=== PATIENT | male | born 1965 | race Caucasian/White ===

== ENCOUNTER 2017-03-15 06:54 | Inpatient (IN) | payer OTHER ==
--- NOTE | ~2017-03-15 | CN ---
Consultation Report [facility] [address] [place]. [address] NAME: MENDEZ COLLAZO JR : 63 STATUS : ADM Katie PAT#: [id number] AGE: 51 ADM/REG DATE : 03/15/17 MR#: [id number] REPORT SERV DATE: 03/16/17 DICTATED BY: HERNESTO VERA DATE: 03/16/17 REPORT STATUS : Draft TRANSCRIBED BY: MODAdrienne DATE: 03/16/17 INFECTIOUS DISEASE CONSULTATION DATE OF CONSULTATION: REASON FOR CONSULTATION: Right index finger infection in a patient with multiple antibiotic allergies. HISTORY OF PRESENT ILLNESS: A 51-year-old white male with diabetes, "Pxrslqm-Wassh-Piizt disease involving both hands and feet was admitted yesterday for right index finger infection. About two weeks ago, his right 2nd and 3rd fingernails broke when he lifted a box. He has some muscle atrophy and finger deformities perhaps due to his disease. His nails started growing back, but then over this last weekend, he developed swelling at the tip of the right index finger that progressed to the rest of the finger and also had some erythema. He had some low-grade fever 99.9 and then 101 in the emergency room, some nausea. When he noticed this swelling and redness had progressed up the hand towards the forearm, he came to the hospital. To me he reported no trauma to the tip of the finger or the pulp. He has a dog, but it did not bite or scratch him. Dr. Garcia saw him and took him to the operating room. He found pus and necrotic tissue when he opened the index finger pulp, it extended to the distal phalanx bone and part of that was resected. He also did incisions over the flexor tendon sheath in the deep thenar space with debridement. He thought it was "early infection" in the deep thenar space. However, the cultures are labeled as index finger and bone, and they are both growing some gram-positive cocci. The index finger specimen, which is presume is from the finger pulp has rare gram-positive cocci on the Gram stain. He was given vancomycin, which he tolerated overnight, but this morning he had itching and "some welts" that he noticed over the right arm and one on the pubic area. The vancomycin was stopped. He has not had any shortness of breath. He does have occasional boils with some nausea, no vomiting. His urine flow is somehow slow, which he blames on anesthesia. PAST MEDICAL HISTORY: As I mentioned above, plus hypertension, hyperlipidemia, reflux. PAST SURGICAL HISTORY: He had multiple surgeries before. In 2012, he had right 2nd toe amputation. In 2015, he had a right 5th metatarsal amputation for an MSSA infection. In 2014, he had a left index finger felon with MSSA requiring debridement. In 2013, he had a right hand cellulitis. ALLERGIES: HE STATES A CHILD, PENICILLIN CAUSED A RASH AND SHORTNESS OF BREATH. ANCEF CAUSED SEVERE ITCHING, ALTHOUGH I NOTICED HE RECEIVED A DOSE IN 10/2016. VANCOMYCIN TODAY CAUSED ITCHING AND MAYBE EARLY RASH. Consultation Report [address] [place]. [address] NAME: MENDEZ COLLAZO JR : 63 STATUS : ADM Katie PAT#: [id number] AGE: 51 ADM/REG DATE : 03/15/17 MR#: [id number] REPORT SERV DATE: 03/16/17 DICTATED BY: HERNESTO VERA DATE: 03/16/17 REPORT STATUS : Draft TRANSCRIBED BY: GUILLERMO DATE: 03/16/17 FAMILY HISTORY: Diabetes. SOCIAL HISTORY: He is disabled, . He has a pet dog. Does not smoke. MEDICATIONS ON ADMISSION: Amlodipine, Nexium, [place] as needed, metformin, omega-3 fatty acids, simvastatin, valsartan. PHYSICAL EXAMINATION: GENERAL: On exam, he is alert, awake, not in distress. HEENT: No oral thrush. Sclerae are white. EXTREMITIES: Hands as I mentioned, right hand now is wrapped. Left hand, there is some frailty to the thumbnail. The other ones look okay, just short. He has bilateral feet deformities what will be described as Charcot foot. He has some edema. LUNGS: Clear to auscultation. No wheezes, rhonchi, or rales. HEART: Regular rhythm. ABDOMEN: Soft. Positive bowel sounds. BUTTOCKS: With old scars from previous acne lesions. SKIN: With left upper inner arm raised red area, and the rest of the arm with a few pink raised areas. LAB WORK: On admission, sodium 132, potassium 3.3, lactic acid 0.7, creatinine 0.8. WBC 7, hemoglobin 13. ASSESSMENT AND PLAN: 1. Right index finger pulp abscess and osteomyelitis of the distal phalanx. Possible flexor tenosynovitis and thenar space infection, had surgical debridement yesterday. Cultures are growing gram-positive cocci to be further identified. 2. Diabetes. 3. Reported Waptgqg-Fmhns-Lzsuc disease. 4. History of left hand and right foot methicillin-susceptible Staphylococcus aureus infections. 5. Reported allergies as I mentioned. I will stop the vancomycin and start linezolid pending cultures. With possible tenosynovitis will need about three weeks of antibiotics. I discussed with the patient. He also tells me his hemoglobin A1c has been below 6. He lost a lot of weight. He does not bite his nails. He did not get any dog scratch or bite. MIRIAM/GUILLERMO Hernesto Vera M.D. Consultation Report [address] [address] NAME: MENDEZ COLLAZO JR : 63 STATUS : ADM Katie PAT#: [id number] AGE: 51 ADM/REG DATE : 03/15/17 MR#: [id number] REPORT SERV DATE: 03/16/17 DICTATED BY: HERNESTO VERA DATE: 03/16/17 REPORT STATUS : Draft TRANSCRIBED BY: GUILLERMO DATE: 03/16/17 / [id number] CC: Dante Gordon DO
--- NOTE | ~2017-03-15 | HP ---
History And Physical [address] [place]. [address] NAME: GOPAL GARCIA JR : 63 STATUS : ADM Katie PAT#: [id number] AGE: 51 ADM/REG DATE : 03/15/17 MR#: [id number] REPORT SERV DATE: 03/16/17 DICTATED BY: KENYATTA BALDERRAMA DATE: 03/15/17 REPORT STATUS : Draft TRANSCRIBED BY: MODL DATE: 03/15/17 DATE OF ADMISSION: 03/15/2017 REASON: Right index finger infection. HISTORY OF PRESENT ILLNESS: Gopal Garcia Junior is a 51-year-old, right hand dominant male, with past medical history significant for cfs-vzlltbk-taahyfnrm diabetes, severe Aketqda-Ouxqz-Ghbzz disease with neuropathy especially involving the lower extremities with deformities of the feet and weakness of both legs and hands. He was admitted to [facility] after being seen late last night 03/14/2017 for increasing pain, redness and swelling without fever of several days duration. He was diagnosed with a flexor tenosynovitis, and symptoms were noted several days after his right index fingernail sustained a small thania. His white count upon admission was 7.7, and he was brought to this hospital for further treatment and IV antibiotics as well as surgery. He has a history of a left index finger I and D of felon by Dr. Rios Pena in 2014 and has done well since that time. PAST MEDICAL HISTORY: 1. Qllfunp-Jlpnm-Cfzon with:. 2. A. Deformities of feet and hands. 3. B. Neuropathy. 4. Non-insulin dependent diabetes. 5. Hypertension. 6. Former obesity. 7. GERD. 8. Hypercholesterolemia. 9. Knee arthritis. PAST SURGICAL HISTORY: 1. Right 5th metatarsal amputation by Dr. Ragland. 2. Left index finger I and D of felon by Dr. Pena in 2014. HOME MEDICATIONS: 1. Hydrochlorothiazide 25 mg daily. 2. Hydrocodone APAP 10 mg 1-2 q.4-6 p.r.n. pain. 3. Norvasc 10 mg at bedtime. 4. Nexium 40 mg at bedtime. 5. Metformin 500 mg p.o. every breakfast and supper. 6. Lovaza 1 g cap 4 g p.o. with supper. 7. Zocor 20 mg at bedtime. 8. Diovan 320 mg q.a.m. ALLERGIES: ANCEF CAUSES ITCHING AND HIVES. PENICILLIN ITCHING AND HIVES. VANCOMYCIN SEVERE HIVES AND ITCHING. REVIEW OF SYSTEMS: History And Physical [address] [place]. [address] NAME: GOPAL GARCIA JR : 63 STATUS : ADM Katie PAT#: [id number] AGE: 51 ADM/REG DATE : 03/15/17 MR#: [id number] REPORT SERV DATE: 03/16/17 DICTATED BY: KENYATTA BALDERRAMA DATE: 03/15/17 REPORT STATUS : Draft TRANSCRIBED BY: GUILLERMO DATE: 03/15/17 He has lower extremity weakness. Negative shortness of breath or chest pain. He does not have any reading glasses. No recent fever or chills. He has had a loss of weight from 285 pounds to 212 pounds over the past year as part of the will full desire to lose weight. This has greatly reduced his medications for hypertension and blood sugars. Otherwise, see past medical history and past surgical history. FAMILY HISTORY: Mother with diabetes, obesity, and Hzabzoq-Gicok-Znrcq. Father is healthy and lives with Gopal Garcia Junior. 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 He is . He has children. His older daughter has diabetes, and his younger daughter is healthy. He quit smoking 30 years ago, and he still drinks 2 to 3 times a week and his alcohol of choice is beer. PHYSICAL EXAMINATION: GENERAL: Pleasant, cooperative, 51-year-old male, in no acute distress. VITAL SIGNS: Height 5 feet 11 inches weight 212 pounds. Blood pressure 172/85, heart rate 85, O2 sats 100% on room air. HEENT: Normocephalic, atraumatic. COR: Regular rate and rhythm. LUNGS: Clear to auscultation. ABDOMEN: Soft, nontender. MUSCULOSKELETAL: Exam C-spine nontender. Both shoulders and elbows with functional range of motion. Both hands with severe intrinsic atrophy and deformities. The right hand is swollen and tender and red. Index finger into the radial palm with decreased range of motion of all fingers. All fingers have mild clawing due to the intrinsic atrophy, and there is a positive Froment's sign on the left. The right side was not checked. All nails with chipping and deformities. There is a positive Kanavel sign on the right index finger with mild flexion and tenderness along the flexor tendon sheath and pain with passive range of motion. TLS spine is nontender. Both lower extremities with atrophy of the calf muscles and severe deformities of the feet with mid tarsal collapse and loss of right fourth great toe. There was decreased sensation in all toes both feet as well as decreased sensation of all fingers to gross light touch. LABORATORY DATA: White count 7.7. IMPRESSION: Right index finger, supportive flexor tenosynovitis into the palm with possible deep palmar space abscess. PLAN: The patient will need to be admitted for IV antibiotics and undergo surgery. Surgery was offered in the form of exploration of finger, irrigation of flexor tendon sheath. Also, deep thenar space will be explored and may need to be released. The risks and benefits of the surgery were discussed, and all questions were answered by me to satisfaction. Gopal Johnson Jose wished to proceed with surgery and plan for this shortly. /MODL History And Physical [address] [address] NAME: GOPAL GARCIA : 63 STATUS : ADM Katie PAT#: [id number] AGE: 51 ADM/REG DATE : 03/15/17 MR#: [id number] REPORT SERV DATE: 03/16/17 DICTATED BY: KENYATTA BALDERRAMA DATE: 03/15/17 REPORT STATUS : Draft TRANSCRIBED BY: GUILLERMO DATE: 03/15/17 Kenyatta Balderrama M.D. / [id number]
--- NOTE | ~2017-03-15 | OP ---
Record Of Operation [facility] [address] [place]. [address] NAME: MENDEZ COLLAZO JR : 63 STATUS : ADM IN PAT#: [id number] AGE: 51 ADM/REG DATE : 03/15/17 MR#: [id number] REPORT SERV DATE: 03/18/17 DICTATED BY: KENYATTA BALDERRAMA DATE: 03/18/17 REPORT STATUS : Draft TRANSCRIBED BY: MODL DATE: 03/18/17 DATE OF PROCEDURE: 03/18/2017 PREOPERATIVE DIAGNOSIS: Right index finger tip abscess with flexor supportive tenosynovitis, status post previous irrigation debridement tip amputation 03/16/2017. POSTOPERATIVE DIAGNOSIS: Right index finger tip abscess with flexor supportive tenosynovitis, status post previous irrigation debridement tip amputation 03/16/2017. PROCEDURES: 1. Right index finger tip. a. Repeat cultures. b. Repeat irrigation and debridement including flexor tendon sheath. c. Delayed wound closure. 2. Right hand abscess. a. Irrigation of deep thenar space. b. Repeat cultures. c. Repeat irrigation and wound closure. RESEARCH ATTORNEY: Joshua Cheng. ANESTHESIA: General. ESTIMATED BLOOD LOSS: 2 mL. COMPLICATIONS: None. DISPOSITION: The patient tolerated the procedure well and was brought to the recovery room in stable condition. PROCEDURE NOTE: The patient brought to the operating room and placed in supine position. After general anesthesia was administered, a pneumatic tourniquet was placed around the right proximal arm and a portion of the right upper extremity dressing was removed. The remainder was kept on and then Esmarch was used to exsanguinate the extremity and tourniquet was inflated. A surgical timeout was taken and all were in agreement. The rest of the dressing was removed. The wounds were inspected cultures were taken from the index finger and the hand, and afterwards the right upper extremity distal to the tourniquet was prepped and draped in the usual sterile manner. Distal finger tip was then irrigated with copious amounts of normal saline via pulse lavage after a rongeur was used to remove the remaining nonviable tissue in the finger tip including a portion of the bone. The flexor tendon sheath was then irrigated from distal to proximal and then from proximal to distal. Irrigation of flexor tendon sheath was carried out with the help of a #5-Icelandic pediatric feeding tube, which was placed first retrograde and then anterograde into the flexor tendon sheath, and after adequate irrigation, attention was then directed to the hand. Record Of Operation [facility] [address] [place]. [address] NAME: MENDEZ COLLAZO JR : 63 STATUS : ADM IN PAT#: [id number] AGE: 51 ADM/REG DATE : 03/15/17 MR#: [id number] REPORT SERV DATE: 03/18/17 DICTATED BY: KENYATTA BALDERRAMA DATE: 03/18/17 REPORT STATUS : Draft TRANSCRIBED BY: GUILLERMO DATE: 03/18/17 The hand wound was inspected and blunt dissection was carried out to the deep thenar space, where cultures were taken. This area appeared clean and the wound was then irrigated with copious amounts of normal saline via pulse lavage. The wound in the hand as well as the index fingers were both closed with 3-0 nylon suture and a sterile dressing was applied. Tourniquet was released prior to placement of the dressing. The patient tolerated the procedure well and was ready to be brought to the recovery room in stable condition. ELOISE/GUILLERMO Kenyatta Balderrama M.D. / [id number] CC: Dante Gordon DO
--- NOTE | ~2017-03-15 | DS ---
Discharge Summary [facility] [address] [place]. [address] NAME: MENDEZ COLLAZO JR : 63 STATUS : DIS IN PAT#: [id number] AGE: 51 ADM/REG DATE : 03/15/17 MR#: [id number] REPORT SERV DATE: 04/02/17 DICTATED BY: KENYATTA BALDERRAMA DATE: 04/01/17 REPORT STATUS : Draft TRANSCRIBED BY: GUILLERMO DATE: 04/01/17 Data Collection from hospitalization DISCHARGE DIAGNOSES: 1. Right hand abscess. 2. Neuropathy secondary to Shrdmdf-Liowv-Ehwvz. 3. Nah-kidsrjx-vxboxrlij diabetes mellitus. 4. History of Shnxoum-Wwhmz-Uwdud with deformities of hands and feet. 5. Hypertension. 6. Former obesity. 7. Gastroesophageal reflux disease. 8. Hypercholesterolemia. 9. Knee arthritis. 10.Former smoker. CONSULTATIONS: Hernesto Delvalle M.D. PROCEDURES: 1. Right index finger incision and drainage of distal finger pulp, distal P3 bone amputation, bone sent for cultures and pathology to rule out osteomyelitis, irrigation of flexor tendon sheath, deep thenar space. irrigation on 03/15/2017. 2. Right index fingertip, repeat cultures, repeat irrigation and debridement including flexor tendon sheath, delayed wound closure, right hand abscess, irrigation of deep thenar space, repeat cultures, repeat irrigation and wound closure on 03/18/2017. 3. Right index finger and palm, repeat cultures, proximal sliver of P3 bone or removal of proximal P3 bone that was still remaining following second incision and drainage (complete excision of P3 bone), deep thenar space, repeat irrigation of flexor tendon sheath 03/19/2017. PATHOLOGY: Soft tissue, bone, and cartilage, right index finger biopsy-reparative reaction with focal acute osteomyelitis, osteoclastic bone resorption, and focal bone destruction, right index finger bone-fragments of focally devitalized bone with osteomyelitis. DISCHARGE MEDICATIONS: 1. Norvasc 10 mg at bedtime. 2. Hygroton 25 mg daily. 3. Nexium 40 mg at bedtime. 4. Fortamet 500 mg with breakfast. 5. Multivitamins one tablet daily. 6. Lovaza 4 g with supper. 7. Percocet 5/325 one to two tablets every 4 to 6 hours as needed. 8. Zocor 20 mg at bedtime. 9. Diovan 320 mg every morning. CONDITION AT DISCHARGE: Stable. DISPOSITION: The patient was discharged home with diet and activities as instructed. He will follow up with me on 03/31/2017. He would follow up with Dr. Omega Gregg, as Discharge Summary [id number] [place]. [address] NAME: MENDEZ COLLAZO JR : 63 STATUS : DIS IN PAT#: [id number] AGE: 51 ADM/REG DATE : 03/15/17 MR#: [id number] REPORT SERV DATE: 04/02/17 DICTATED BY: KENYATTA BALDERRAMA DATE: 04/01/17 REPORT STATUS : Draft TRANSCRIBED BY: GUILLERMO DATE: 04/01/17 instructed. He would follow [facility] at [facility] on 03/30/2017 or 03/31/2017. HOSPITAL COURSE: This is a 51-year-old man who has a history significant for non-insulin- dependent diabetes and severe Rjhytkx-Kmczr-Esthr disease with neuropathy, especially involving the lower extremities with deformities of the feet and weakness of both legs and hands. He has been admitted to [facility] after being seen late on the night of 03/14/2017 for increasing pain, redness, and swelling without fever of several days duration. He was diagnosed with flexor tenosynovitis and symptoms were noted for several days after his right index fingernail sustained a small thania. White count on admission was 7.7 and he was brought to this hospital for further treatment, IV antibiotics, as well as surgery. He was admitted to the hospital at this time for further evaluation and treatment. Upon admission, IV antibiotics were started. Surgery had been offered in the form of exploration of the finger and irrigation of the flexor tendon sheath, also the deep thenar space would be explored, and may need to be released. He agree to proceed. He was taken to the operating room where he underwent the above-mentioned procedure. He tolerated this well and there were no complications. On postop day #1, he was doing well, but complained of having the hives and itching with vancomycin. He said he had received vancomycin previously and did the same thing. Benadryl did not help. Blood pressure was controlled. Simvastatin was continued. He was seen in consultation by Dr. Hernesto Delvalle regarding right index finger infection in a patient with multiple antibiotic allergies. His assessment included right index finger pulp abscess and osteomyelitis of the distal phalanx, possible flexor tenosynovitis and thenar space infection which had undergone surgical debridement, cultures were growing gram-positive cocci to be further identified. The vancomycin was stopped, linezolid was started pending cultures. With possible tenosynovitis, it was felt he would need about three weeks of antibiotics. The patient states that his hemoglobin A1c had been below 6. He had lost a lot of weight. He had not had a scratch or bite from a dog. On the , he was doing well. He had no complaints other than his feet were starting to swell. He was encouraged to keep his feet and legs elevated. He was on oral Zyvox, amlodipine was continued, as well as simvastatin. He was receiving level 2 sliding scale insulin. Metformin was on hold. On 03/18/2017, the patient was taken back to the operating room where he underwent the above-mentioned procedure. He tolerated this well and there were no complications. On 03/19/2017, he was afebrile, he had no acute complaints. He had no side effects from his antibiotics. Cultures were negative. The patient was found to have one positive culture- osteomyelitis. A small amount of bone was left at the base of P3. I was inclined to repeat incision and drainage given the above culture results, the patient agreed to proceed. He was taken back to the operating room where he underwent the above-mentioned procedure. He tolerated this well. There were no complications. Discharge planning was performed. On 03/20/2017, he was doing well, he wanted to go home. Oral Zosyn was continued. Discharge instructions were given. Three weeks of antibiotics were planned. Due to his improved and stable condition, he was discharged home with the above-stated instructions. Information collected by: Christine Nance I submit the above information as my discharge summary. Discharge Summary [address] [facility]. [address] NAME: MENDEZ COLLAZO : 63 STATUS : DIS IN [facility]#: [id number] AGE: 51 ADM/REG DATE : 03/15/17 MR#: [id number] REPORT SERV DATE: 04/02/17 DICTATED BY: KENYATTA BALDERRAMA DATE: 04/01/17 REPORT STATUS : Draft TRANSCRIBED BY: MODL DATE: 04/01/17 TG/MODL Kenyatta Balderrama M.D. / [id number] CC: Dante Gordon DO Paul Cornea, M.D.
--- NOTE | ~2017-03-15 | OP ---
Record Of Operation [facility] [address] [place]. [address] NAME: MENDEZ COLLAZO JR : 63 STATUS : ADM IN PAT#: [id number] AGE: 51 ADM/REG DATE : 03/15/17 MR#: [id number] REPORT SERV DATE: 03/19/17 DICTATED BY: KENYATTA BALDERRAMA DATE: 03/19/17 REPORT STATUS : Draft TRANSCRIBED BY: MODL DATE: 03/19/17 DATE OF PROCEDURE: 03/15/2017 PREOPERATIVE DIAGNOSES: Right index finger and the palm methicillin-sensitive Staph aureus (MSSA) infection with distal finger abscess, P3 osteomyelitis, suppurative flexor tenosynovitis, and deep thenar space abscesses requiring multiple irrigation debridements and flexor tendon irrigation, 03/15/2017 and 03/18/2017. PROCEDURES: Right index finger and palm: 1. Repeat cultures. 2. Proximal sliver of P3 bone or removal of proximal P3 bone that was still remaining following second I and D (complete excision of P3 bone). 3. Deep thenar space repeat irrigation of flexor tendon sheath. SURGEON: Kenyatta Balderrama M.D. COBOL DEVELOPER: Jonathan Oseguera. ANESTHESIA: General. ESTIMATED BLOOD LOSS: Less than 1 mL. COMPLICATIONS: None. DISPOSITION: The patient tolerated the procedure well and was brought to recovery room in stable condition. PROCEDURE NOTE: The patient was brought to the operating room and placed in a supine position. After general anesthesia was administered, a pneumatic tourniquet was placed around the right proximal arm, and an Esmarch was used to exsanguinate the extremity. Tourniquet was inflated. Dressings were removed. The right upper extremity was then prepped and draped in the usual sterile manner. A surgical timeout was performed and all were in agreement. Sutures were removed and cultures were taken of the distal finger pulp as well as the deep thenar space region more proximally in the palm. Afterwards, 3 L of normal saline was used to irrigate both sites. A rongeur was then used to remove the remaining sliver of P3 bone keeping the flexor tendon still intact to the volar plate. The flexor tendon was then irrigated with copious amounts of normal saline via #5-Chinese pediatric feeding tube. All the wounds looked clean and then all wounds were then dried. All wounds were then closed with 3-0 nylon suture and a sterile dressing was applied. Tourniquet was released and the patient was taken out of general anesthesia and brought to recovery room in stable condition. Record Of Operation [address] [place]. [address] NAME: MENDEZ COLLAZO JR : 63 STATUS : ADM IN [facility]#: [id number] AGE: 51 ADM/REG DATE : 03/15/17 MR#: [id number] REPORT SERV DATE: 03/19/17 DICTATED BY: KENYATTA BALDERRAMA DATE: 03/19/17 REPORT STATUS : Draft TRANSCRIBED BY: MODL DATE: 03/19/17 /MODL Kenyatta Balderrama M.D. / [id number] CC: Dante Gordon DO
--- NOTE | ~2017-03-15 | OP ---
Record Of Operation [facility] [address] [place]. [address] NAME: MENDEZ COLLAZO JR : 63 STATUS : ADM Katie PAT#: [id number] AGE: 51 ADM/REG DATE : 03/15/17 MR#: [id number] REPORT SERV DATE: 03/16/17 DICTATED BY: KENYATTA BALDERRAMA DATE: 03/15/17 REPORT STATUS : Draft TRANSCRIBED BY: MODL DATE: 03/15/17 DATE OF PROCEDURE: 03/15/2017 PREOPERATIVE DIAGNOSIS: Right index finger distal pulp abscess with support of flexor tenosynovitis and deep thenar space abscess. POSTOPERATIVE DIANGOSIS: Right index finger distal pulp abscess with support of flexor tenosynovitis and deep thenar space abscess. PROCEDURES: Right index finger: 1. Incision and drainage of distal finger pulp. 2. Distal P3 bone amputation. Bone sent for cultures and pathology to rule out osteomyelitis. 3. Irrigation of flexor tendon sheath. 4. Deep thenar space irrigation. PHYSICIAN: Kenyatta Balderrama M.D. ANESTHESIA: General. ESTIMATED BLOOD LOSS: 50 mL. IV FLUIDS: 500 mL of crystalloid. COMPLICATIONS: None. DISPOSITION: Patient tolerated the procedure well, was brought to recovery room in stable condition. PROCEDURE NOTE: The patient was brought to the operating room and placed in supine position. After general anesthesia was administered, a pneumatic tourniquet was placed around the right proximal arm and the right upper extremity distal to the tourniquet, was prepped and draped in the usual sterile manner. Arm was elevated for five minutes and the tourniquet was inflated after the surgical timeout was performed. A 15 blade scalpel was used to make an incision into the distal pulp and pus immediately emanated from the area. The deep tissue was necrotic and this was removed with a rongeur. The P3 bone appeared of questionable viability and the distal one-half of the bone of the distal phalanx was removed and this was sent to Pathology for identification to rule out osteomyelitis as well as for cultures. The wound was then irrigated with copious amounts of normal saline after removing the deformed nail plate and underlying nail bed. This gained access into the flexor tendon sheath and into the palm. An incision was made overlying the A1 stacey and then directed more proximally into the portion of the thenar crease. Blunt dissection was carried out taking care to protect neurovascular structures and the flexor tendon sheath was then irrigated with copious amounts of normal saline from both proximal-to distal and then [id number] with the help of a 5-[place]ish pediatric feeding tube. Record Of Operation [facility] [address] [place]. [address] NAME: MENDEZ COLLAZO JR : 63 STATUS : ADM Katie PAT#: [id number] AGE: 51 ADM/REG DATE : 03/15/17 MR#: [id number] REPORT SERV DATE: 03/16/17 DICTATED BY: KENYATTA BALDERRAMA DATE: 03/15/17 REPORT STATUS : Draft TRANSCRIBED BY: MODAdrienne DATE: 03/15/17 After adequate irrigation, the deep thenar space was explored and this was noted to have early infection and then this was irrigated with copious amounts of normal saline via pulse lavage. Afterwards sterile dressings were applied to each site and the wounds were left partially open. Some of the wounds were closed with 3-0 nylon suture. A sterile dressing was applied. Tourniquet was released prior to placing the dressing to make sure there was no extensive bleeding noted. The patient tolerated the procedure well and was ready to be taken out of general anesthesia to be brought to recovery room having tolerated the procedure quite well. ELOISE/GUILLERMO Kenyatta Balderrama M.D. / [id number] CC: Dante Gordon DO
[~2017-03-15 06:54] MED LIST: ASAB PO; BACDS PO; BYSTOLIC10 MG PO; CAT2 PO; CIP5 PO; CLEOCIN300 MG; CLEOCIN300 MG PO; COREG25 PO; DIOVAN HCT320 MG/25 PO; DIOVAN320 MG PO; FLONASE NAS; FLORASTOR250 MG PO; FORTAMET500 MG PO; GLUCPH PO; GLUCXL5 PO; HYGROTON 25 MG25 MG PO; LORT7; LORTAB 5 PO; LOVAZA PO; LOVAZA1 GM PO; MULTIVITAMI1 PO; NEUR100 PO; NEXIUM40 PO; NORCO1 TA1 PO; NORCO1 TA2 PO; NORV10 PO; NORV5 PO; SIMPLY SLEEP25 MG PO; X25 PO; ZOCOR20 PO; ZOCOR40 PO
[2017-03-17 04:32] LABS: BASOPHILS 0.5 %; BASOPHILS ABSOLUTE 0.03 10/3/uL (0.0-0.16); EOSINOPHILS 3.1 %; EOSINOPHILS ABSOLUTE 0.17 10/3/uL (0.0-0.53); HEMATOCRIT 36.8 % (40.0-51.0); HEMOGLOBIN 12.6 g/dL (13.6-17.8); IMMATURE GRANULOCYTES 0.4 %; IMMATURE GRANULOCYTES ABSOLUTE 0.02 10/3/uL (0.0-0.11); LYMPHOCYTES 22.8 %; LYMPHOCYTES ABSOLUTE 1.27 10/3/uL (0.67-4.30); MEAN CORPUS HGB CONC 34.2 g/dL (32.0-36.0); MEAN CORPUSCULAR HEMOGLOB 29.4 pg (26.0-34.0); MEAN CORPUSCULAR VOLUME 85.8 fL (80-100); MEAN PLATELET VOLUME 9.8 fL (9.2-13.0); MONOCYTES 10.3 %; MONOCYTES ABSOLUTE 0.57 10/3/uL (0.21-1.20); NEUTROPHILS 62.9 %; PLATELET COUNT 253 10/3/uL (150-400); RBC DISTRIBUTION WIDTH 12.9 % (12.0-16.0); RED CELL COUNT 4.29 10/6/uL (4.7-6.1); WHITE BLOOD CELLS 5.6 10/3/uL (4.5-10.5)
[2017-03-17 04:36] LABS: MANUAL DIFF NO %
[2017-03-17 04:45] LABS: BUN (BLOOD UREA NITROGEN) 8 MG/DL (6-23); CALCIUM, SERUM 9.4 MG/DL (8.5-10.4); CHLORIDE, SERUM 97 MMOL/L (96-112); CO2 (CARBON DIOXIDE) 29 MMOL/L (24-34); CREATININE 0.67 MG/DL (0.70-1.30); GFR AFRICAN AMERICAN 128 ML/MIN (>=60); GFR NON AFRICAN AMERICAN 110 ML/MIN (>=60); GLUCOSE, SERUM 108 MG/DL (60-99); SODIUM, SERUM 135 MMOL/L (135-148)
[2017-03-18 04:25] LABS: BASOPHILS 0.5 %; BASOPHILS ABSOLUTE 0.02 10/3/uL (0.0-0.16); EOSINOPHILS 4.3 %; EOSINOPHILS ABSOLUTE 0.19 10/3/uL (0.0-0.53); HEMATOCRIT 36.4 % (40.0-51.0); HEMOGLOBIN 12.4 g/dL (13.6-17.8); IMMATURE GRANULOCYTES 0.2 %; IMMATURE GRANULOCYTES ABSOLUTE 0.01 10/3/uL (0.0-0.11); LYMPHOCYTES 27.3 %; LYMPHOCYTES ABSOLUTE 1.21 10/3/uL (0.67-4.30); MEAN CORPUS HGB CONC 34.1 g/dL (32.0-36.0); MEAN CORPUSCULAR HEMOGLOB 29.2 pg (26.0-34.0); MEAN CORPUSCULAR VOLUME 85.8 fL (80-100); MEAN PLATELET VOLUME 9.4 fL (9.2-13.0); MONOCYTES 9.9 %; MONOCYTES ABSOLUTE 0.44 10/3/uL (0.21-1.20); NEUTROPHILS 57.8 %; NEUTROPHILS ABSOLUTE 2.57 10/3/uL (2.02-8.40); PLATELET COUNT 258 10/3/uL (150-400); RBC DISTRIBUTION WIDTH 12.6 % (12.0-16.0); RED CELL COUNT 4.24 10/6/uL (4.7-6.1); WHITE BLOOD CELLS 4.4 10/3/uL (4.5-10.5)
[2017-03-18 04:29] LABS: MANUAL DIFF NO %
[2017-03-18 04:38] LABS: BUN (BLOOD UREA NITROGEN) 9 MG/DL (6-23); CALCIUM, SERUM 9.1 MG/DL (8.5-10.4); CHLORIDE, SERUM 98 MMOL/L (96-112); CO2 (CARBON DIOXIDE) 31 MMOL/L (24-34); CREATININE 0.62 MG/DL (0.70-1.30); GFR AFRICAN AMERICAN 132 ML/MIN (>=60); GFR NON AFRICAN AMERICAN 114 ML/MIN (>=60); GLUCOSE, SERUM 103 MG/DL (60-99); POTASSIUM, SERUM 3.8 MMOL/L (3.5-5.3); SODIUM, SERUM 134 MMOL/L (135-148)
[2017-03-20] MEDS ORDERED: PCET PO (15:57)
[2017-06-30] MEDS ORDERED: BACDS PO (19:37)
[2017-06-30] MEDS ORDERED: HYGROTON 25 MG25 MG PO (19:37)
[2017-06-30] MEDS ORDERED: NEXIUM40 PO (19:37)
[2017-06-30] MEDS ORDERED: FLONASE NAS (19:38)
[2017-06-30] MEDS ORDERED: NORV10 PO (19:38)
[2017-06-30] MEDS ORDERED: ZOCOR20 PO (19:38)
[2017-06-30] MEDS ORDERED: NORCO1 TA2 PO (19:39)
[2017-06-30] MEDS ORDERED: CENTRUM PO (19:39)
[2017-06-30] MEDS ORDERED: ZOFRAN4 PO (19:39)
[2017-06-30] MEDS ORDERED: IRON OTC PO (19:40)
[2017-06-30] MEDS ORDERED: FORTAMET500 MG PO (19:40)
[2017-06-30] MEDS ORDERED: DIOVAN320 MG PO (19:41)
[2017-06-30] MEDS ORDERED: LOVAZA1 GM PO (19:41)
[2017-07-07] MEDS ORDERED: ZYVOXPO PO (14:18)
[2017-07-07] MEDS ORDERED: DSS PO (14:18)
[2017-07-07] MEDS ORDERED: MULTIVITAMI1 PO (14:19)
[2017-07-07] MEDS ORDERED: MIRALAX POWDER1 PKT PO (14:20)
[2017-07-07] MEDS ORDERED: FLOMAX4 PO (14:21)
[2017-07-07] MEDS ORDERED: NORCO1 TA1 PO (14:21)
== END 2017-03-20 18:07 | disposition home or self-care (01) | DRG 513 ==
LOC: 3SO 06:54
PROVIDERS: Orthopaedic Surgery Hand Surgery
DX: M86.8X4 Other osteomyelitis, hand (principal); L02.511 Cutaneous abscess of right hand; G60.0 Hereditary motor and sensory neuropathy; I10 Essential (primary) hypertension; E11.9 Type 2 diabetes mellitus without complications; B95.61 Methicillin susceptible Staphylococcus aureus infection as the cause of diseases classified elsewhere; E78.5 Hyperlipidemia, unspecified; K21.9 Gastro-esophageal reflux disease without esophagitis; Z88.0 Allergy status to penicillin; Z88.1 Allergy status to other antibiotic agents; Z88.8 Allergy status to other drugs, medicaments and biological substances; Z79.899 Other long term (current) drug therapy; Z79.84 Long term (current) use of oral hypoglycemic drugs
CPT/HCPCS: 80048; 82962; 83605; 85025; 87015; 87040; 87070; 87075; 87077; 87102; 87116; 87150; 87186; 87205; 88304; 88311; 93005; 96365; 96375; 99284; A9270-GY; J1170; J2020; J2250; J2270; J2405; J3010; J3370